=== PATIENT | female | born 1955 | race African-American/Black ===

== ENCOUNTER 2020-02-27 07:54 | Emergency (ER) | payer OTHER ==
[~2020-02-27] VITALS: Ht 160 cm; Wt 104.0 kg
[2020-02-27 08:59] LABS: BASOPHILS % 0.7 % (0.0-2.0); EOSINOPHILS % 2.9 % (0.0-5.0); HEMATOCRIT. 43.8 % (36.0-48.0); HEMOGLOBIN. 14.3 g/dL (12.0-16.0); LYMPHOCYTES % 18.5 % (20.0-50.0); MEAN CORPUSCULAR HEMOGLOBIN 29.2 pg (28.0-32.0); MEAN CORPUSCULAR VOLUME 89.8 fL (81.0-99.0); MEAN PLATELET VOLUME 9.7 fl (7.4-10.4); MONOCYTES % 9.5 % (2.0-8.0); NEUTROPHILS % 68.4 % (40.0-76.0); PLATELET 239 x1000/uL (130-400); RED BLOOD CELL COUNT 4.88 mill/uL (4.2-5.4)
[2020-02-27 09:01] LABS: CHLORIDE 107 mEq/L (98-107)
[2020-02-27] MEDS ORDERED: ACETAMINOPHEN 325MG TABLET PO ONE (09:30)
[2020-02-27] MEDS ORDERED: ONDANSETRON HCL 4MG/2ML INJ IV ONE (09:30)
[2020-02-27] MEDS ORDERED: MORPHINE SULFATE 4 MG/ML CPJ (NOT FOR IM USE) IV NR (10:14)
[2020-02-27] MEDS ORDERED: ONDANSETRON HCL 4MG/2ML INJ IV NR (10:14)
[2020-02-27 10:26] LABS: INR 1.2; PROTHROMBIN TIME 12.5 sec (9.6-11.0)
[2020-02-27 13:20] VITALS: BP 149/89
== END 2020-02-27 13:42 | disposition short-term general hospital (02) ==
LOC: ER 08:14 → EDBEDREQ 10:54 → EDBEDREQTM 10:54 → ER 13:42 → CANBEDREQ 02-29 11:11
DX: R07.89 Other chest pain (principal); I11.0 Hypertensive heart disease with heart failure; I50.9 Heart failure, unspecified; R42 Dizziness and giddiness; Z88.6 Allergy status to analgesic agent
CPT/HCPCS: 36415; 70450; 71045; 80053; 83880; 84484; 85025; 85610; 93005; 96374; 96375; 96376; 99285; J2270; J2405